=== PATIENT | male | born 1955 | race Caucasian/White ===

== ENCOUNTER 2018-09-24 09:22 | Outpatient (REF) | payer BC, SELFPAY ==
[2018-09-24 20:39] LABS: ALT 32 U/L (12-78); AST 21 U/L (15-37); Anion Gap 9.4 mmol/L (3-11); BUN 18 mg/dL (7-18); CO2 26.6 mmol/L (21.0-32.0); CREATININE 0.87 mg/dL (0.70-1.30); Calcium 8.9 mg/dL (8.5-10.1); Chloride 105 mmol/L (98-107); Cholesterol 143 mg/dL (50-200); Glucose 105 mg/dL (70-100); HDL Cholesterol 39 mg/dL (40-60); LDL CHOLESTEROL 94 mg/dL (<100); Potassium 4.2 mmol/L (3.5-5.1); Sodium 141 mmol/L (136-145); Triglyceride 75 mg/dL (30-150)
[2018-09-24 20:52] LABS: Creatine Kinase 118 U/L (39-308)
== END 2018-09-24 09:42 ==
LOC: NCHCN 09:22
PROVIDERS: PCP Nurse Practitioner Family; Visit Provider Nurse Practitioner Family
DX: E78.5 Hyperlipidemia, unspecified (principal); I10 Essential (primary) hypertension; R73.01 Impaired fasting glucose
CPT/HCPCS: 80048; 80061; 82550; 83721; 84450; 84460

== ENCOUNTER 2019-04-06 09:03 | Outpatient (REF) | payer BC, SELFPAY ==
[2019-04-06 21:22] LABS: HDL Cholesterol 33 mg/dL (40-60); LDL CHOLESTEROL 169 mg/dL (<100)
== END 2019-04-06 09:23 ==
LOC: NCHCN 09:03
PROVIDERS: PCP Nurse Practitioner Family; Visit Provider Nurse Practitioner Family
DX: E78.5 Hyperlipidemia, unspecified (principal); I10 Essential (primary) hypertension
CPT/HCPCS: 83721; 83718

== ENCOUNTER 2019-10-05 12:10 | Outpatient (REF) | payer BC, SELFPAY ==
[2019-10-05 19:43] LABS: Anion Gap 9.5 mmol/L (3-11); BUN 22 mg/dL (7-18); CO2 26.5 mmol/L (21.0-32.0); CREATININE 0.87 mg/dL (0.70-1.30); Calcium 8.7 mg/dL (8.5-10.1); Calculated LDL 134 mg/dL (<100); Chloride 106 mmol/L (98-107); Cholesterol 189 mg/dL (<200); Glucose 110 mg/dL (74-106); HDL Cholesterol 34 mg/dL (40-60); Sodium 142 mmol/L (136-145); Triglyceride 107 mg/dL (<150)
== END 2019-10-05 12:30 ==
LOC: NCHCN 12:10
PROVIDERS: PCP Nurse Practitioner Family; Visit Provider Nurse Practitioner Family
DX: I10 Essential (primary) hypertension (principal); E78.5 Hyperlipidemia, unspecified; R73.01 Impaired fasting glucose; H40.059 Ocular hypertension, unspecified eye
CPT/HCPCS: 80048; 80061

== ENCOUNTER 2020-04-06 12:31 | Outpatient (REF) | payer BC, SELFPAY ==
[2020-04-06 21:48] LABS: ALT 33 U/L (16-63); AST 27 U/L (15-37); Anion Gap 5.2 mmol/L (3-11); BUN 18 mg/dL (7-18); CO2 28.8 mmol/L (21.0-32.0); CREATININE 0.86 mg/dL (0.70-1.30); Calcium 8.6 mg/dL (8.5-10.1); Chloride 104 mmol/L (98-107); Glucose 99 mg/dL (74-106); HDL Cholesterol 34 mg/dL (40-60); LDL CHOLESTEROL 86 mg/dL (<100); Potassium 4.4 mmol/L (3.5-5.1); Sodium 138 mmol/L (136-145)
[2020-04-06 22:16] LABS: Creatine Kinase 144 U/L (39-308)
== END 2020-04-06 12:51 ==
LOC: NCHCN 12:31
PROVIDERS: PCP Nurse Practitioner Family; Visit Provider Nurse Practitioner Family
DX: I10 Essential (primary) hypertension (principal); E78.5 Hyperlipidemia, unspecified
CPT/HCPCS: 80048; 82550; 83721; 83718; 84450; 84460